=== PATIENT | female | born 1945 | race Caucasian/White ===

== ENCOUNTER 2016-07-26 10:51 | Outpatient (RCR) | payer MEDICARE, BC | END 2016-10-12 14:34 | disposition home or self-care (01) | LOC: MKS.ESL.PT 10:51 | DX: M54.17 Radiculopathy, lumbosacral region (principal); M51.26 Other intervertebral disc displacement, lumbar region; M43.15 Spondylolisthesis, thoracolumbar region | CPT/HCPCS: G8978-GP; G8979-GP ==

== ENCOUNTER → 2016-09-29 | Outpatient (CLI) | payer MEDICARE, BC ==
[~2016-09-29] MED LIST: ASPIRIN 81M81 MG/TA2 PO; CYMBALTA 60MG60 MG PO; KLOR-CON 1010 MEQ PO; LIPITOR 10MG10 MG PO; PRINIVIL10 MG PO; PRINIVIL20 MG PO; SALAGEN 5MG TAB5 MG PO
== END ==
LOC: COL.CARD 10:43
DX: Z01.810 Encounter for preprocedural cardiovascular examination (principal)

== ENCOUNTER 2017-03-24 15:20 | Emergency (ER) | payer MEDICARE, BC ==
[~2017-03-24] VITALS: Ht 157.5 cm; Wt 68.2 kg
[2017-03-24 15:23] VITALS: TEMP 99
[2017-03-24] MEDS ORDERED: ASPIRIN 81M81 MG/TA2 PO (16:02)
[2017-03-24] MEDS ORDERED: PRINIVIL10 MG PO (16:02)
[2017-03-24] MEDS ORDERED: CYMBALTA 60MG60 MG PO (16:03)
[2017-03-24] MEDS ORDERED: LIPITOR 10MG10 MG PO (16:05)
[2017-03-24] MEDS ORDERED: KLOR-CON 1010 MEQ PO (16:05)
[2017-03-24] MEDS ORDERED: SALAGEN 5MG TAB5 MG PO (16:06)
[2017-03-24] MEDS ORDERED: PRINIVIL20 MG PO (16:20)
[2017-03-24 16:35] VITALS: BP 199/94; PULSE 68
== END 2017-03-24 16:40 | disposition home or self-care (01) ==
LOC: COL.ER 15:20
DX: I16.0 Hypertensive urgency (principal); I25.10 Atherosclerotic heart disease of native coronary artery without angina pectoris; Z90.710 Acquired absence of both cervix and uterus; Z95.9 Presence of cardiac and vascular implant and graft, unspecified; Z79.02 Long term (current) use of antithrombotics/antiplatelets

== ENCOUNTER 2018-08-25 17:55 | Emergency (ER) | payer MEDICARE, BC ==
[~2018-08-25] VITALS: Ht 154.9 cm; Wt 72.7 kg
[2018-08-25 18:02] VITALS: TEMP 98
[2018-08-25 18:26] LABS: BASO # 0.1 (0.0-0.2); BASO % 0.7 % (0.0-2.0); EOS # 0.4 (0.0-0.7); EOS % 4.2 % (0-4.0); GRAN # 5.2 (1.4-6.5); GRAN % 60.8 % (42.2-75.2); HEMATOCRIT 39.8 % (37.0-47.0); HEMOGLOBIN 13.8 g/dl (12.5-16.0); LYMPH # 2.3 (1.2-3.4); LYMPH % 26.8 % (20.0-51.0); MEAN CELL VOLUME 88 fl (80.0-100.0); MEAN CORPUSCULAR HEMOGLOBIN 30 pg (27.0-31.0); MEAN CORPUSCULAR HGB CONC 35 g/dl (33.0-37.0); MEAN PLATELET VOLUME 10.5 fl (7.4-10.4); MONO # 0.6 (0.1-0.6); MONO % 7.3 % (1.7-9.3); PLATELET COUNT 293 K/mm3 (130-400); RED BLOOD COUNT 4.54 M/mm3 (4.10-5.30); REDCELL DISTRIBUTION WIDTH-CV 12.5 % (11.5-14.5)
[2018-08-25 18:33] LABS: ALANINE AMINOTRANSFERASE 26 U/L (9-52); ALBUMIN 4.6 gm/dL (3.5-5.0); ALKALINE PHOSPHATASE 81 U/L (50-136); ANION GAP 8 mmol/L (7-16); AST,SGOT 26 U/L (15-37); BLOOD UREA NITROGEN 26 mg/dL (7-17); CALCIUM 9.8 mg/dL (8.4-10.2); CARBON DIOXIDE 31 mmol/L (22-30); CHLORIDE 100 mmol/L (98-107); CREATININE, serum 1.33 mg/dL (0.52-1.25); GLUCOSE 131 mg/dL (74-106); POTASSIUM 3.7 mmol/L (3.4-5.0); SODIUM 140 mmol/L (137-145); TOTAL PROTEIN 7.6 gm/dL (6.4-8.2)
[2018-08-25 18:34] LABS: PROTHROMBIN TIME 11.5 SECONDS (9.7-12.8)
[2018-08-25 18:45] LABS: TROPONIN-I < 0.012 ng/mL (0.000-0.034)
[2018-08-25] MEDS ORDERED: NITROSTAT0.4 MG/TAB SL (21:30)
[2018-08-25 21:41] VITALS: BP 116/76; PULSE 67
== END 2018-08-25 21:56 | disposition home or self-care (01) ==
LOC: COL.ER 17:55
PROVIDERS: Emergency Medicine
DX: R07.89 Other chest pain (principal); I10 Essential (primary) hypertension; E78.5 Hyperlipidemia, unspecified; Z90.710 Acquired absence of both cervix and uterus; Z95.5 Presence of coronary angioplasty implant and graft; Z79.82 Long term (current) use of aspirin